=== PATIENT | male | born 1990 | race Caucasian/White ===

== ENCOUNTER 2020-07-24 10:12 | Emergency (ER) | payer SELFPAY ==
[2020-07-24 10:14] VITALS: BP 147/114; PULSE 107; RESP 18; TEMP 36.1; O2SAT 100; BMI 27.1
--- NOTE | 2020-07-24 10:56 | CT_ITS ---
STUDY: CT BRAIN WITHOUT CONTRAST REASON FOR EXAM: Male, 29 years old. N/T TO B.L ARMS,LEGS RADIATION DOSAGE (If Supplied By Facility): CTDIvol = ( 44.99 ) mGy, DLP = ( 846.73 ) mGycm TECHNIQUE: Transaxial CT imaging of the brain was performed without administration of intravenous contrast material. Individualized dose optimization techniques were used for this CT. COMPARISON: No relevant priors. FINDINGS: Normal soft tissue structures. Normal calvarium. Normal size ventricles and extra-axial spaces for the patient''s age. Normal white matter tracts of the cerebral hemispheres. Normal basal ganglia and thalami. Normal brainstem. Normal cerebellum. There is no intracranial hemorrhage. There are no findings of an acute ischemic infarction. Normal visualized paranasal sinuses. CT/Brain/Head without Contrast IMPRESSION: Normal unenhanced CT scan of the brain. Electronically Signed: Vince Arriola MD at 11:51 EST , Service support ,
--- NOTE | 2020-07-24 10:58 | MRI_ITS ---
STUDY: MRI CERVICAL SPINE WITH AND WITHOUT CONTRAST REASON FOR EXAM: Male, 29 years old. N/T extremities, arm weakness TECHNIQUE: Standardized fat and water weighted pulse sequences were obtained in the sagittal and axial following administration of IV Dotarem 20ml. COMPARISON: None FINDINGS: Normal foramen magnum and brainstem-cervical cord junction. Normal craniovertebral junction. Normal anterior atlantoaxial articulation. Normal odontoid process. Normal cervical lordosis. Normal vertebral bodies and posterior osseous elements. C2-3: Normal endplates. Normal disc height, signal and morphology. Normal central canal and intervertebral neural foramina. C3-4: Normal endplates. Normal disc height, signal and morphology. Normal central canal and intervertebral neural foramina. C4-5: Normal endplates. Normal disc height, signal and morphology. Normal central canal and intervertebral neural foramina. C5-6: Normal endplates. Normal disc height, signal and morphology. Normal central canal and intervertebral neural foramina. C6-7: Normal endplates. Normal disc height, signal and morphology. Normal central canal and intervertebral neural foramina. C7-T1: Normal endplates. Normal disc height, signal and morphology. Normal central canal and intervertebral neural foramina. Normal cervical cord. Normal visualized soft tissue structures. MRI/Spine Cervical W/WO Contrast IMPRESSION: Normal unenhanced and enhanced MR examination of the cervical spine. Electronically Signed: Clint Cope MD at 15:53 EST Tel , Service support ,
--- NOTE | 2020-07-24 10:58 | MRI_ITS ---
STUDY: MRI LUMBAR SPINE WITH AND WITHOUT CONTRAST REASON FOR EXAM: Male, 29 years old. Extremity numbness, tingling TECHNIQUE: Standardized fat and water weighted pulse sequences were obtained in the sagittal and axial planes. 18ml Dotarem via IV was administered for the contrast portion of the examination. COMPARISON: None FINDINGS: T12-L1: Normal endplates. Normal disc height, hydration and morphology. Normal bilateral facet joints. Normal central canal and bilateral lateral recesses. Normal bilateral intervertebral neural foramina. Normal lumbar lordosis. There is no substantial scoliosis. Normal conus medullaris that terminates at the T12/L1 L1-2: Normal endplates. Normal disc height, hydration and morphology. Normal bilateral facet joints. Normal central canal and bilateral lateral recesses. Normal bilateral intervertebral neural foramina. L2-3: Normal endplates. Normal disc height, hydration and morphology. Normal bilateral facet joints. Normal central canal and bilateral lateral recesses. Normal bilateral intervertebral neural foramina. L3-4: Normal endplates. Normal disc height, hydration and morphology. Normal bilateral facet joints. Normal central canal and bilateral lateral recesses. Normal bilateral intervertebral neural foramina. L4-5: Normal endplates. Normal disc height, hydration and morphology. Normal bilateral facet joints. Normal central canal and bilateral lateral recesses. Normal bilateral intervertebral neural foramina. L5-S1: Small central disc protrusion with an annular tear produces mild spinal stenosis but no neural foraminal stenosis. Normal visualized sacral ala. Normal visualized paraspinous soft tissue structures. There is no demonstrated abnormal enhancement. MRI/Spine Lumbar W/WO Contrast IMPRESSION: Small central disc protrusion at L5/S1 produces mild spinal stenosis but no neural foraminal stenosis. Electronically Signed: Clint Cope MD at 15:59 EST Tel , Service support ,
--- NOTE | 2020-07-24 10:58 | MRI_ITS ---
STUDY: MRI THORACIC SPINE WITH AND WITHOUT CONTRAST REASON FOR EXAM: Male, 29 years old. Arm weakness, N/T TECHNIQUE: 18ml Dotarem via IV was administered for the contrast portion of the examination. COMPARISON: None. FINDINGS: Normal kyphosis of the thoracic spine. There is no substantial scoliosis. T1-2, T2-3, T3-4, T4-5, T5-6, T6-7, T7-8, T8-9, T9-10, T10-11, T11-12: Normal endplates. Normal disc hydration, heights and morphology of the corresponding intervertebral discs. Normal central canal and intervertebral neural foramina at the corresponding levels. Normal visualized thoracic cord. Normal conus medullaris that terminates at the L1. The soft tissue structures are unremarkable. There is no enhancing abnormality. MRI/Spine Thoracic W/WO Contrast IMPRESSION: Normal unenhanced and enhanced MRI examination of the thoracic spine. Electronically Signed: Clint Cope MD at 15:56 EST Tel , Service support ,
[2020-07-24 11:10] LABS: Bacteria 0 SEEN /hpf (None Seen); Mucous, Urine 0 SEEN /hpf (<or=2+); Red Blood Cells-Urine 0 SEEN /hpf (0-5); Squamous Epithelial Cells - UA 0 SEEN /hpf (0-5); White Blood Cells 0 SEEN /hpf (0-5)
--- NOTE | 2020-07-24 11:10 | ED.VIS.GEN ---
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 Patient states he had of slip and fall on ice a week ago. He states he is actually feeling fine just a little sore after that. This morning when he woke up he had a weakness of his extremities more pronounced on the left. He states he could not hold his coffee cup with his left hand because his billing and quality technician strength was so off. He states he normally has a very strong billing and quality technician strength. He also was having paresthesias on his left arm and bilateral legs. The paresthesias he describes as a tingling sensation are more pronounced on the left. When he use the restroom after a bowel movement this morning he states he could not feel the wiping like he normally does. He also went pee but felt like he still had to go afterwards. He is not on any anticoagulation. He denies any IV drug use. Patient denies any headache, vision changes, chest pain, shortness of breath or any other systemic symptoms. He states he feels anxious about this scenario. He denies any recent viral illnesses or colds. <Dayami Holder - Last Filed: 07/25/20 15:54> Chief Complaint: Numb/Ting Past Medical History <Fred Diaz - Last Filed: 07/24/20 21:58> Past Medical History: None Surgical History: herniorrhaphy Lives: Spouse/ Significant Other Smoking Status: Never smoker <Dayami Holder - Last Filed: 07/25/20 15:54> - Allergies and Home Meds Allergies/Adverse Reactions: Allergies No Known Allergies Allergy (Verified 07/24/20 10:16) Primary Care Physician: Nathaniel De La Rosa MD [NON-STAFF] - 3-5 Days Review of Systems General: Denies: Chills, Fever, Sweats Eyes: Denies: Visual changes - bilaterally, Diplopia ENT: Denies: Rhinorrhea, Sore throat Cardiovascular: Denies: Chest pain, Palpitations Respiratory: Denies: Dyspnea, Cough, Dyspnea on exertion Gastrointestinal: Denies: Abdominal pain, Nausea, Vomiting, Diarrhea, Melena, Hematochezia Genitourinary: Denies: Dysuria, Hematuria, Frequency Musculoskeletal: Denies: Myalgias, Back pain, Swelling, Extremity Pain Skin: Denies: Rash, Wounds Neurological: Reports: Weakness, Parasthesia. Denies: Headache, Numbness <Dayami Holder - Last Filed: 07/25/20 15:54> Physical Exam Vital Signs/Narrative: Vital Signs Pulse Resp BP Pulse Ox 07/24/20 19:00 91 18 126/86 H 96 <DiazFred - Last Filed: 07/24/20 21:58> Vital Signs/Narrative: Vital Signs Temp Pulse Resp BP Pulse Ox 07/24/20 10:14 97 F L 107 H 18 147/114 H 100 Inital Vital Signs reviewed: Yes General: Well nourished, Well developed, No Acute Distress Head: Normocephalic, Atraumatic Eyes: Perrl, EOMI ENT: Moist mucous membranes, No rhinorrhea Neck: Supple, Nontender Cardiovascular: Regular rate, Regular rhythm, No murmurs Respiratory: No distress, CTA bilaterally, Chest nontender Abdomen: Soft, Nontender, Nondistended, Normal bowel sounds Rectal: Nontender, - - Rectal tone present Back: Nontender, Normal Inspection. Negative for: CVA tenderness, Spinal tenderness Extremities: Nontender, No edema Skin: Normal color, No rash Neurological: Alert, Oriented x3, Cranial nerves II-XII grossly intact, Normal Strength, Normal Sensation, Normal Gait, Parasthesia - Left upper extremity and bilateral lower extremities diffusely. Paresthesias in the saddle distribution as well., - - Asymmetric patellar reflexes, 3/4 right and 2/4 on right. 5 out of 5 strength on the right but 4/5 left billing and quality technician strength, hip flexion and knee extension. No myoclonus of the ankles noted. Psychological: Normal affect, Normal Mood <Dayami Holder - Last Filed: 07/25/20 15:54> Diagnostic/Tx/Re-eval Impressions Brain CT 07/24/20 10:56 IMPRESSION: Normal unenhanced CT scan of the brain. Electronically Signed: Vince Arriola MD at 11:51 EST , Service support , Cervical Spine MRI 07/24/20 10:58 IMPRESSION: Normal unenhanced and enhanced MR examination of the cervical spine. Electronically Signed: Clint Cope MD at 15:53 EST Tel , Service support , Lumbar Spine MRI 07/24/20 10:58 IMPRESSION: Small central disc protrusion at L5/S1 produces mild spinal stenosis but no neural foraminal stenosis. Electronically Signed: Clint Cope MD at 15:59 EST Tel , Service support , Thoracic Spine MRI 07/24/20 10:58 IMPRESSION: Normal unenhanced and enhanced MRI examination of the thoracic spine. Electronically Signed: Clint Cope MD at 15:56 EST Tel , Service support , Chest X-Ray 07/24/20 11:32 IMPRESSION: Normal x-ray examination of the chest. Electronically Signed: Vince Arriola MD at 12:20 EST , Service support , 07/24/20 10:56 Brain/Head without Contrast [CT] Stat 07/24/20 10:58 MRI Thoracic [Spine Thoracic W/WO Contrast] [MRI] Stat Spine Cervical W/WO Contrast [MRI] Stat Spine Lumbar W/WO Contrast [MRI] Stat 07/24/20 11:32 Chest 1 View (Portable) [RAD] Stat 07/24/20 17:00 Shunt - Fluid Gram Stain - Preliminary Laboratory Results 07/24/20 07/24/20 07/24/20 11:04 11:17 11:17 WBC 7.5 RBC 5.42 Hgb 15.8 Hct 47.4 MCV 87.5 MCH 29.2 MCHC 33.3 RDW Std Deviation 41.2 RDW Coeff of Shilpa 13.1 Plt Count 271 MPV 10.3 Immature Gran % (Auto) 0.300 Neut % (Auto) 75.1 H Lymph % (Auto) 17.4 L [place] % (Auto) 6.7 Eos % (Auto) 0.1 Baso % (Auto) 0.4 Absolute Neuts (auto) 5.6 Absolute Lymphs (auto) 1.31 Nucleated RBC % 0 Sodium 138 Potassium 3.8 Chloride 105 Carbon Dioxide 29.0 Anion Gap 4 L BUN 13 Creatinine 1.04 Estim Creat Clear Calc 117.10 Est GFR (MDRD) Af Amer 110 Est GFR (MDRD) Non-Af 91 BUN/Creatinine Ratio 12.5 Glucose 100 Calcium 9.1 Urine Color Yellow Urine Clarity Clear Urine pH 7.0 Ur Specific [place] 1.010 Urine Protein Negative Urine Glucose (UA) Normal Urine Ketones Negative Urine Occult Blood Negative Urine Nitrite Negative Urine Bilirubin Negative Urine Urobilinogen Normal Ur Leukocyte Esterase Negative Urine RBC 0 SEEN Urine WBC 0 SEEN Ur Squamous Epith Cells 0 SEEN Urine Bacteria 0 SEEN Urine Mucus 0 SEEN CSF Appearance CSF Color CSF WBC CSF RBC CSF Cell Count Tube # CSF Total Cell Counted CSF Comment CSF Glucose CSF Total Protein 07/24/20 07/24/20 17:00 17:00 WBC RBC Hgb Hct MCV MCH MCHC RDW Std Deviation RDW Coeff of Shilpa Plt Count MPV Immature Gran % (Auto) Neut % (Auto) Lymph % (Auto) [place] % (Auto) Eos % (Auto) Baso % (Auto) Absolute Neuts (auto) Absolute Lymphs (auto) Nucleated RBC % Sodium Potassium Chloride Carbon Dioxide Anion Gap BUN Creatinine Estim Creat Clear Calc Est GFR (MDRD) Af Amer Est GFR (MDRD) Non-Af BUN/Creatinine Ratio Glucose Calcium Urine Color Urine Clarity Urine pH Ur Specific [place] Urine Protein Urine Glucose (UA) Urine Ketones Urine Occult Blood Urine Nitrite Urine Bilirubin Urine Urobilinogen Ur Leukocyte Esterase Urine RBC Urine WBC Ur Squamous Epith Cells Urine Bacteria Urine Mucus CSF Appearance CLEAR CSF Color COLORLESS CSF WBC 8 H CSF RBC 68 H CSF Cell Count Tube # 2 CSF Total Cell Counted TNP CSF Comment May follow CSF Glucose 55 CSF Total Protein 48.0 H He has self reveals 8 white cells 68 red cells. White count is slightly elevated for the amount of red cells. There is no xanthochromia. Total protein is probably elevated because of the elevated RBCs. Other tests are pending. Patient was discharged to home <Diaz,Fred - Last Filed: 07/24/20 21:58> Chest X-Ray - ED: 1 View, Read by ED Physician, Read by Radiologist, No Acute Disease Clinical Impression(s) from Imaging Studies Brain CT 07/24/20 10:56 IMPRESSION: Normal unenhanced CT scan of the brain. Electronically Signed: Vince Arriola MD at 11:51 EST , Service support , Cervical Spine MRI 07/24/20 10:58 IMPRESSION: Normal unenhanced and enhanced MR examination of the cervical spine. Electronically Signed: Clint Cope MD at 15:53 EST Tel , Service support , Lumbar Spine MRI 07/24/20 10:58 IMPRESSION: Small central disc protrusion at L5/S1 produces mild spinal stenosis but no neural foraminal stenosis. Electronically Signed: Clint Cope MD at 15:59 EST Tel , Service support , Thoracic Spine MRI 07/24/20 10:58 IMPRESSION: Normal unenhanced and enhanced MRI examination of the thoracic spine. Electronically Signed: Clint Cope MD at 15:56 EST Tel , Service support , Chest X-Ray 07/24/20 11:32 IMPRESSION: Normal x-ray examination of the chest. Electronically Signed: Vince Arriola MD at 12:20 EST , Service support , Laboratory Data 07/24/20 07/24/20 07/24/20 11:04 11:17 11:17 WBC 7.5 RBC 5.42 Hgb 15.8 Hct 47.4 MCV 87.5 MCH 29.2 MCHC 33.3 RDW Std Deviation 41.2 RDW Coeff of Shilpa 13.1 Plt Count 271 MPV 10.3 Immature Gran % (Auto) 0.300 Neut % (Auto) 75.1 H Lymph % (Auto) 17.4 L [place] % (Auto) 6.7 Eos % (Auto) 0.1 Baso % (Auto) 0.4 Absolute Neuts (auto) 5.6 Absolute Lymphs (auto) 1.31 Nucleated RBC % 0 Sodium 138 Potassium 3.8 Chloride 105 Carbon Dioxide 29.0 Anion Gap 4 L BUN 13 Creatinine 1.04 Estim Creat Clear Calc 117.10 Est GFR (MDRD) Af Amer 110 Est GFR (MDRD) Non-Af 91 BUN/Creatinine Ratio 12.5 Glucose 100 Calcium 9.1 Urine Color Yellow Urine Clarity Clear Urine pH 7.0 Ur Specific [place] 1.010 Urine Protein Negative Urine Glucose (UA) Normal Urine Ketones Negative Urine Occult Blood Negative Urine Nitrite Negative Urine Bilirubin Negative Urine Urobilinogen Normal Ur Leukocyte Esterase Negative Urine RBC 0 SEEN Urine WBC 0 SEEN Ur Squamous Epith Cells 0 SEEN Urine Bacteria 0 SEEN Urine Mucus 0 SEEN - Medical Decision Making Patient is evaluated for saddle anesthesia, paresthesias and lower extremity weakness, left greater than right. Patient is also having hand weakness left greater than right. Presentation is atypical for cauda equina or other acute neurologic symptoms but still worrisome. MRI is obtained of the spine which does not show any acute process that explains his symptoms. In addition head CT is obtained which is normal. Patient does not have any electrolyte abnormalities or other infectious signs. LP is obtained for concern of possible atypical GBS. Patient tolerated this very well. See procedure note. On reevaluation patient does have some improvement of his billing and quality technician strength and plantar flexion, but still is asymmetric. Anticipate if CSF analysis is negative patient can follow-up with spine. Patient will be signed off to oncoming provider pending CSF analysis. Patient is hemodynamically stable in the emergency room. <Dayami Holder - Last Filed: 07/25/20 15:54> Procedures - Lumbar Puncture Consent/Risks: Consent for procedure obtained, Risks/Benefits/Alternatives Discussed Lumbar Puncture Description: Sitting, Sterile Prep, Betadine Prep, Sterile Technique, L3-4 Spinal Needle: 21 Sedation: 2mg versed Opening Pressure: n/a Fluid Color: blood tinged that cleared <Dayami Holder - Last Filed: 07/25/20 15:54> ED Disposition <Fred Diaz - Last Filed: 07/24/20 21:58> <Dayami Holder - Last Filed: 07/25/20 15:54> - Plan for ED Patient: Disposition: Home or Assisted Living Diagnosis: Weakness of lower extremity, Paresthesias, Decreased billing and quality technician strength of left hand Instructions: ED Weakness (Uncertain Cause), ED Paraesthesias Referrals: Nathaniel De La Rosa MD [NON-STAFF] - 3-5 Days
[2020-07-24 11:13] LABS: Color, Urine Yellow (Yellow); Glucose, Dipstick Normal (Normal); Ketone-Dipstick Negative (Negative); Leukocyte Esterase-Dipstick Negative /ul (Negative); Nitrite-Dipstick Negative (Negative); Occult Blood-Urine Negative /ul (Negative); Protein-Dipstick Negative (Negative); Urine Bilirubin Dipstick Negative (Negative); Urine Clarity Clear (Clear); Urine Urobilinogen Normal (Normal)
[2020-07-24 11:29] LABS: Absolute Lymphocyte Count 1.31 X10^3/uL (0.83-4.51); Absolute Neutrophil Count 5.6 X10^3/uL (2.0-7.7); Basophil# 0.03 X10^3/uL; Basophil% 0.4 % (0-1); Eosinophil# 0.01 X10^3/uL; Eosinophils% 0.1 % (0-5); Hematocrit 47.4 % (40-54); Hemoglobin 15.8 g/dL (13.0-16.5); Lymphocyte # 1.31 X10^3/ul (4.0); Lymphocyte % 17.4 % (19-41); Mean Corp Hgb Conc 33.3 g/dL (32-36); Mean Corpuscular Hgb 29.2 pg (27.0-32.0); Mean Corpuscular Volume 87.5 fL (80-94); Mean Platelet Vol. 10.3 fl (6.2-12.0); Monocyte% 6.7 % (0-10); NRBC Flagged by Analyzer 0 % (0-5); Neutrophil # 5.64 X10^3/uL (2.7-7.7); Neutrophil % 75.1 % (47-70); Platelet Count 271 K/mm3 (150-450); RBC Distribution Width CV 13.1 % (11.6-14.6); RBC Distribution Width SD 41.2 fl (35.1-43.9); Red Blood Count 5.42 M/mm3 (4.6-6.2); White Blood Count 7.5 K/mm3 (4.4-11.0)
--- NOTE | 2020-07-24 11:32 | RAD_ITS ---
STUDY: X-RAY CHEST REASON FOR EXAM: Male, 29 years old. NUMBNESS AND TINGLING IN BILATERAL ARMS AND LEGS STARTING THIS A.M.- HX OF BACK INJURY TECHNIQUE: Single AP portable view of the chest. COMPARISON: None. FINDINGS: The lungs are clear and expanded. There is no demonstrated pleural abnormality. Normal size heart. Normal mediastinum and nena. Normal visualized pulmonary arteries. Normal visualized aortic arch and descending thoracic aorta. Normal visualized thoracic spine. Normal visualized ribs, clavicles, and shoulders. There is no demonstrated abnormality of the visualized soft tissue structures of the upper abdomen. RAD/Chest 1 View (Portable) IMPRESSION: Normal x-ray examination of the chest. Electronically Signed: Vince Arriola MD at 12:20 EST , Service support ,
[2020-07-24 11:47] LABS: Anion Gap 4 (5-15); BUN 13 mg/dL (7-18); BUN/Creat Ratio 12.5 RATIO (10-20); Calcium,Total 9.1 mg/dL (8.5-10.1); Chloride 105 mmol/L (98-107); Creatinine, Serum 1.04 mg/dL (0.70-1.30); EST Glomerular Filtration Rate 91 mL/min (>60); Est Glom Filt Rate - Afr Amer 110 mL/min (>60); Glucose 100 mg/dL (74-106); Potassium 3.8 mmol/L (3.5-5.1); Sodium Level 138 mmol/L (136-145)
[2020-07-24 15:47] VITALS: BP 129/99; PULSE 118; RESP 16; O2SAT 99
[2020-07-24] MEDS: 0.9% Normal Saline 1,000 ML 999 ML IV (16:44)
[2020-07-24] MEDS: Midazolam 2 MG/2 ML Syringe IV (16:44)
[2020-07-24 17:07] VITALS: BP 143/84; PULSE 115; RESP 16; O2SAT 98
[2020-07-24 18:38] LABS: Glucose Spinal Fluid 55 mg/dL (40-75)
[2020-07-24 18:57] LABS: RBC Count, Spinal Fluid 68 /mm-3 (None seen); White Count, CSF 8 /mm-3 (0 - 5)
[2020-07-24 19:00] VITALS: BP 126/86; PULSE 91; RESP 18; O2SAT 96
[2020-07-24 19:00] LABS: Body Fluid QC Type(s) BF1Q
[2020-07-24 19:02] LABS: Appearance CSF (character) CLEAR (Clear); Auto B Fluid Analyzer BKGD Ct COUNTS W/IN LIMITS (W/IN LIMITS); CSF Color COLORLESS (Colorless); Tested Tube # 2
[2020-07-25 13:19] LABS: Pathologist Review Reviewed
[2020-07-28 03:06] LABS: HSV 1 By PCR Negative (Negative)
[2020-07-28 12:23] LABS: HSV 2 By PCR Negative (Negative)
== END 2020-07-24 22:22 | disposition home or self-care (01) ==
PROVIDERS: Emergency Provider Emergency Medicine
DX: R53.1 Weakness (principal); R20.2 Paresthesia of skin; R68.89 Other general symptoms and signs
CPT/HCPCS: 62270; 70450; 71045; 72156; 72157; 72158; 80048; 81001; 82945; 84157; 85025; 87070; 87205; 87529; 87798; 89050; 89051; 96361; 96374; 99283; A9575; J7030; A4216